=== PATIENT | male | born 1950 | race Caucasian/White ===

== ENCOUNTER → 2016-08-10 | Emergency (ER) | payer SELFPAY | END | disposition home or self-care (01) | LOC: FER 17:27 | DX: R10.11 Right upper quadrant pain (principal); R11.0 Nausea; Z53.8 Procedure and treatment not carried out for other reasons ==

== ENCOUNTER 2021-02-04 08:21 | Emergency (ER) | payer OTHER ==
[2021-02-04 10:04] LABS: BASOPHIL 0.6 % (0-2); HCT 44.5 % (42.0-52.0); HGB 14.9 g/dl (13.2-18.0); LYMPHOCYTE 10.4 % (15-48); MCH 30.2 pg (25.0-31.0); MCHC 33.5 g/dL (32.0-36.0); MCV 90.1 fL (78.0-100.0); MONOCYTE 7.7 % (0-12); NEUTROPHIL 79.7 % (41-80); NRBC 0; PLT 166 K/uL (150-400); RBC 4.94 M/uL (4.70-6.00); RDW 12.2 % (11.5-14.0); WBC 11.9 K/uL (4.0-10.5)
[2021-02-04 10:32] LABS: ALBUMIN 3.5 g/dL (3.4-5.0); BILIRUBIN - TOTAL 0.5 mg/dL (0.2-1.0); BUN/CREAT RATIO (CALC) 13.2 RATIO; CREATININE 0.76 mg/dL (0.67-1.17); GLOBULIN (CALCULATION) 3.8 g/dL; POTASSIUM 4.4 mmol/L (3.5-5.1); TOTAL PROTEIN 7.3 g/dL (6.4-8.2)
[2021-02-04] MEDS ORDERED: CYCLOBENZAPRINE10 MG PO (10:36)
[2021-02-04] MEDS ORDERED: MEDROL 4MG DOSEP4 MG PO (10:36)
[2021-02-04] MEDS ORDERED: PERCOCET 5-3251 EACH PO (10:36)
== END 2021-02-04 11:05 | disposition home or self-care (01) ==
LOC: FER 08:21
PROVIDERS: Internal Medicine
DX: M50.31 Other cervical disc degeneration, high cervical region (principal); M50.321 Other cervical disc degeneration at C4-C5 level; M50.322 Other cervical disc degeneration at C5-C6 level; M50.323 Other cervical disc degeneration at C6-C7 level; M48.02 Spinal stenosis, cervical region; J43.9 Emphysema, unspecified; F17.210 Nicotine dependence, cigarettes, uncomplicated
CPT/HCPCS: 36415; 72125; 80053; 84145; 85025; 96372; J1170; J2930

== ENCOUNTER 2021-10-09 14:05 | Emergency (ER) | payer MEDICARE ==
[~2021-10-09 14:05] MED LIST: CYCLOBENZAPRINE10 MG PO; MEDROL 4MG DOSEP4 MG PO; PERCOCET 5-3251 EACH PO
[2021-10-09 14:50] LABS: BASOPHIL 0.2 % (0-2); EOSINOPHIL 0.1 % (0-7); HCT 41.5 % (42.0-52.0); HGB 13.8 g/dl (13.2-18.0); MCH 30.2 pg (25.0-31.0); MCHC 33.3 g/dL (32.0-36.0); MCV 90.8 fL (78.0-100.0); MONOCYTE 3.9 % (0-12); MPV 9.9 fL (6.0-9.5); NRBC 0; PLT 131 K/uL (150-400); RBC 4.57 M/uL (4.70-6.00); RDW 12.6 % (11.5-14.0); WBC 12.4 K/uL (4.0-10.5)
[2021-10-09 15:16] LABS: NEUTROPHIL 92.5 % (41-80)
[2021-10-09 15:23] LABS: ALBUMIN 3.3 g/dL (3.4-5.0); BILIRUBIN - TOTAL 0.6 mg/dL (0.2-1.0); BUN/CREAT RATIO (CALC) 13.3 RATIO; CREATININE 0.9 mg/dL (0.67-1.17); GLOBULIN (CALCULATION) 2.7 g/dL; MAGNESIUM 2.2 mg/dL (1.8-2.4); POTASSIUM 3.9 mmol/L (3.5-5.1)
[2021-10-09 15:26] LABS: INR 1.06 (0.9-1.2); PROTHROMBIN TIME 13.5 SECONDS (11.9-13.9); PTT 25.8 SECONDS (24.9-34.6)
[2021-10-09 15:28] LABS: D-DIMER 0.28 ug/mLFEU (0.00-0.41)
[2021-10-09 15:30] LABS: LACTIC ACID 2.5 mmol/L (0.4-1.9)
[2021-10-09 15:36] LABS: CORONAVIRUS 2019 SARS-COV-2 NEGATIVE (NEGATIVE); INFLUENZA A NAA NEGATIVE (NEGATIVE)
[2021-10-09 16:27] LABS: BILIRUBIN NEGATIVE (NEGATIVE); BLOOD TRACE-INTACT Ery/uL (NEGATIVE); CLARITY CLEAR (CLEAR); COLOR YELLOW (YELLOW); GLUCOSE (U) NORMAL (NORMAL); LEUKOCYTES 1+ Leu/uL (NEGATIVE); NITRITE NEGATIVE (NEGATIVE); PROTEIN NEGATIVE (NEGATIVE); UROBILINOGEN 0.2 mg/dL (0.2-1.0); pH 6.5 (5.0-9.0)
[2021-10-09 16:37] LABS: BACTERIA TRACE; URINARY RBC RARE
[2021-10-09] MEDS ORDERED: VIBRAMYCIN100 MG PO (18:59)
[2021-10-09] MEDS ORDERED: CLEOCIN300 MG PO (18:59)
== END 2021-10-09 19:30 | disposition home or self-care (01) ==
LOC: FER 14:05
PROVIDERS: Emergency Medicine
DX: J18.9 Pneumonia, unspecified organism (principal); F17.210 Nicotine dependence, cigarettes, uncomplicated; Z20.822 Contact with and (suspected) exposure to COVID-19
CPT/HCPCS: 36415; 80053; 81001; 83605; 83690; 83735; 83880; 84145; 84484; 85025; 85379; 85610; 85730; 87040; 93005; J2543; J7030; Q9967; U0002